=== PATIENT | male | born 1975 | race Caucasian/White ===

== ENCOUNTER 2021-07-14 17:47 | Emergency (ER) | payer OTHER ==
[~2021-07-14] VITALS: Ht 177.8 cm; Wt 92.5 kg
[2021-07-14 17:56] VITALS: BP 131/77
--- NOTE | 2021-07-14 18:19 | NUR ---
45 Y/O M C/O R FACE WEAKNESS AND DROOPING. DIFFICULTY CHEWING FOOD ON R SIDE OF HER MOUTH FOR 3 DAYS SINCE LAST TUESDAY . [facility] OR PMH
[2021-07-14] MEDS ORDERED: ACYCLOVIR 200 MG CAP PO ONE (18:20)
[2021-07-14] MEDS ORDERED: predniSONE 20 MG TAB PO ONE (18:20)
[2021-07-14] MEDS ORDERED: POLY15SO48 OP (18:25)
[2021-07-14] MEDS ORDERED: ACYC400T14 PO (18:25)
[2021-07-14] MEDS ORDERED: PRED20TA5 PO (18:25)
--- NOTE | 2021-07-14 18:37 | NUR ---
Patient discharged with v/s stable. Written and verbal after care instructions given and explained. Patient alert, oriented and verbalized understanding of instructions. Ambulatory with steady gait. All questions addressed prior to discharge. ID band removed. Patient advised to follow up with PMD. Rx of ACYCLOVIR, POLVINYL ALCOHOL, PREDNISONE given. Opportunity to ask questions provided and answered.
--- NOTE | 2021-07-14 18:38 | NUR ---
Chart checked and completed. The patient's care was reviewed and supervised by Sandra Rubin RN.
== END 2021-07-14 18:34 | disposition home or self-care (01) ==
LOC: MED 17:47
DX: G51.0 Bell's palsy (principal)
CPT/HCPCS: 99283; J7512

== ENCOUNTER 2022-03-24 15:33 | Emergency (ER) | payer OTHER ==
[~2022-03-24] VITALS: Ht 177.8 cm; Wt 94.4 kg
[~2022-03-24 15:33] MED LIST: ACYC400T14 PO; POLY15SO48 OP; PRED20TA5 PO
[2022-03-24 15:36] VITALS: BP 145/114
[2022-03-24] MEDS ORDERED: KETOROLAC 30 MG/ML VIAL IVP ONE (16:05)
[2022-03-24] MEDS ORDERED: NACL 0.9% 1,000 ML IV ONE (16:05)
[2022-03-24] MEDS ORDERED: ONDANSETRON 4 MG/2 ML VIAL IVP ONE (16:10)
[2022-03-24 16:22] LABS: BASOPHILS % (AUTO) 0.4 % (0.0-2.0); EOSINOPHILS % (AUTO) 0.6 % (0.0-4.0); HEMATOCRIT 41.1 % (36-52); HEMOGLOBIN 14.3 g/dL (12.0-18.0); LYMPHOCYTES # (AUTO) 2.1 K/uL (2.0-11.5); LYMPHOCYTES % (AUTO) 25.1 % (20.5-51.1); MEAN CORPUSCULAR HEMOGLOBIN 31 pg (27-31); MEAN CORPUSCULAR HGB CONC 35 g/dL (33-37); MEAN CORPUSCULAR VOLUME 88.5 fL (80-94); MONOCYTES # (AUTO) 0.5 K/uL (0.8-1.0); MONOCYTES % (AUTO) 5.9 % (1.7-9.3); NEUTROPHILS # (AUTO) 5.6 K/uL (1.8-7.7); PLATELET COUNT (AUTO) 190 K/uL (140-450); RED BLOOD CELL COUNT(AUTO) 4.64 MIL/uL (4.20-6.10); RED CELL DISTRIBUTION WIDTH 14.1 % (11.6-13.7); WHITE BLOOD COUNT (AUTO) 8.2 K/uL (4.8-10.8)
[2022-03-24 16:34] LABS: ALBUMIN 4.1 g/dL (3.4-5.0); ANION GAP 14.3 (8-16); CARBON DIOXIDE 26.7 mmol/L (21-32); CREATININE 1.1 mg/dL (0.6-1.3); TOTAL BILIRUBIN 0.4 mg/dL (0.0-1.0)
[2022-03-24] MEDS ORDERED: MORPHINE SULFATE 4 MG/ML SYR IVP ONE (17:25)
[2022-03-24] MEDS ORDERED: ONDA8TAB87 PO (17:59)
[2022-03-24] MEDS ORDERED: TAMS0.4C96 PO (17:59)
[2022-03-24] MEDS ORDERED: ACET-8386 PO (17:59)
[2022-03-24] MEDS ORDERED: IBUP-2213 PO (17:59)
[2022-03-24 18:11] VITALS: BP 129/79
== END 2022-03-24 18:11 | disposition home or self-care (01) ==
LOC: MED 15:33
DX: N20.0 Calculus of kidney (principal); R11.0 Nausea; R06.02 Shortness of breath; Z79.899 Other long term (current) drug therapy
CPT/HCPCS: 36415; 74176; 80053; 81002; 83690; 85025; 96361; 96374; 96375; 99284; J1885; J2270; J2405; J7030